=== PATIENT | male | born 1960 | race Caucasian/White ===

== ENCOUNTER 2017-11-29 12:33 | Inpatient (IN) | payer BC ==
[~2017-11-29] VITALS: Ht 165.1 cm; Wt 61.9 kg
[~2017-11-29 12:33] MED LIST: CIPRO 500MG TA500 MG PO; LISINOPRIL20 MG PO; NORCO 325 MG-51 TAB PO
[2017-11-29] MEDS ORDERED: LISINOPRIL40 MG PO (12:42)
[2017-11-29 13:04] LABS: EOS # 0.2 (0.04-0.40); EOS % 1.6 % (0.0-4.0); HEMATOCRIT 47.2 % (42.0-52.0); HEMOGLOBIN 16.1 g/dL (13.5-18.0); LYMPH# 2.5 (1.50-4.00); MEAN CELL VOLUME 96 fl (78-100); MEAN CORPUSCULAR HEMOGLOBIN 33 pg (27-31); MEAN CORPUSCULAR HGB CONC 34 g/dL (33-37); MEAN PLATELET VOLUME 10.1 fl (7.4-10.4); MONO # 1.6 (0.20-0.80); NEU # 9.1 (1.40-6.50); PLATELET COUNT 396 K/mm3 (130-400); RED BLOOD COUNT 4.93 M/mm3 (4.20-5.60); RED CELL DISTRIBUTION WIDTH 13.4 % (11.5-14.5); WHITE BLOOD COUNT 13.4 K/mm3 (4.8-10.8)
[2017-11-29 13:15] LABS: ALBUMIN 3.7 g/dL (3.5-5.0); BUN/CREATININE RATIO 11.2 (6.0-26.0); CALCIUM 9.1 mg/dL (8.4-10.2); TOTAL BILIRUBIN 0.7 mg/dL (0.2-1.3); TOTAL PROTEIN 6.9 g/dL (6.3-8.2)
[2017-11-29 13:40] LABS: URINE APPEARANCE CLEAR; URINE BILIRUBIN NEGATIVE (NEGATIVE); URINE BLOOD NEGATIVE (NEGATIVE); URINE COLOR YELLOW; URINE GLUCOSE NEGATIVE (NEGATIVE); URINE KETONE 2+ (NEGATIVE); URINE LEUKOCYTE ESTERASE NEGATIVE (NEGATIVE); URINE MUCUS PRESENT (NOT PRESENT); URINE NITRATE NEGATIVE (NEGATIVE); URINE PROTEIN(semi-quant) NEGATIVE (NEGATIVE); URINE UROBILINOGEN NORMAL (NORMAL)
--- NOTE | 2017-11-29 15:10 | NUR ---
ADMIT TO ROOM 206 FOR ACUTE PANCREATITIS. TRANSFER PER W/C FROM ED TO ROOM. PATIENT AMBULATORY WITH STEADY GAIT. INT INTACT TO LT FOREARM. ORIENT TO ROOM AND SAFETY PROTOCOL BY [employer]PER[employer]OR.
[2017-11-29 15:20] VITALS: BP 126/79
[2017-11-29 16:00] VITALS: BP 126/79
[2017-11-29 18:12] VITALS: BP 137/85
[2017-11-29 18:43] VITALS: BP 137/85
--- NOTE | 2017-11-29 19:03 | NUR ---
REPORT PROVIDED TO [facility].
--- NOTE | 2017-11-29 19:20 | NUR ---
Report received from Coretta BENITEZ. Patient resting in bed with eyes closed. No signs of pain or distress. Banana bag infusing at 125 ML/HR. Site patent. No signs of pain or distress.
--- NOTE | 2017-11-29 21:06 | NUR ---
Awake, calls for more analgesic. Pain 6/10 acrossed lower abdomen around to back. Constant pain. Fentanyl 50 MCG given SIVP. Up ad-aurora and voided 400 ML of clear yellow urine. Instructed to call if feels unsteady on feet. Scheduled ativan 0.5 mg taken PO. Ice chips provided. Assessment completed. Denies further wants or needs.
--- NOTE | 2017-11-29 22:33 | NUR ---
Rests on L side with eyes closed. No signs of distress. IV banana bag continues to infuse at 125 ML/HR.
[2017-11-29 23:00] VITALS: BP 133/80
--- NOTE | 2017-11-30 00:11 | NUR ---
Resting with eyes closed. No signs of pain or distress. [employer] woke patient up at 2300 for vitals. Discussed SCD order. Patient refused SCD's at that time. Patient is up and ambulatory ad-aurora. VSS. IV banana bag has 1 hour left then fluids will switch to NS.
--- NOTE | 2017-11-30 01:15 | NUR ---
Awake, up to BR ad-aurora. Voids 200 ML of yellow urine. New bag of IV fluids hung. NS at 125 ML/HR. Site patent. Pain level 5/10. Fentanyl 50 MCG given SIVP. Provided more ice chips. Denies further wants or needs. Call light in reach.
[2017-11-30 03:15] VITALS: BP 124/83
--- NOTE | 2017-11-30 03:54 | NUR ---
Resting with eyes closed. No signs of pain or distress.
--- NOTE | 2017-11-30 05:32 | NUR ---
Requests analgesic. Pain 4.5/10 to abdomen and back. States he is "much better" than when he came in. Fentanyl 50 MCG given SIVP. IVF NS continues to infuse at 125 ML/HR. Ice chips provided per request.
[2017-11-30 06:17] VITALS: BP 148/84
[2017-11-30 06:40] LABS: HEMATOCRIT 43.5 % (42.0-52.0); HEMOGLOBIN 14.6 g/dL (13.5-18.0); MEAN CELL VOLUME 98 fl (78-100); MEAN CORPUSCULAR HEMOGLOBIN 33 pg (27-31); MEAN CORPUSCULAR HGB CONC 34 g/dL (33-37); MEAN PLATELET VOLUME 10.3 fl (7.4-10.4); PLATELET COUNT 326 K/mm3 (130-400); RED BLOOD COUNT 4.46 M/mm3 (4.20-5.60); RED CELL DISTRIBUTION WIDTH 13.3 % (11.5-14.5); WHITE BLOOD COUNT 10.5 K/mm3 (4.8-10.8)
[2017-11-30 06:59] LABS: ALBUMIN 2.9 g/dL (3.5-5.0); BUN/CREATININE RATIO 7.4 (6.0-26.0); CALCIUM 8.1 mg/dL (8.4-10.2); LYMPHOCYTE 28 % (20-51); MONOCYTE 8 % (3-10); NEUTROPHILS 63 % (42-75); POTASSIUM 4.1 mmol/L (3.6-5.0); TOTAL BILIRUBIN 0.7 mg/dL (0.2-1.3); TOTAL PROTEIN 5.7 g/dL (6.3-8.2)
--- NOTE | 2017-11-30 07:08 | NUR ---
Report to Antionette BENITEZ.
--- NOTE | 2017-11-30 09:00 | NUR ---
Pt awakens upon this RN entering room. Reports pain continuous but is improved since admit. Denies need for pain Rx at this time. Fluids infusing to IV in LFA per order. Removed nicotine patch from R shoulder, placed new on L shoulder. Pt takes sip of water with PO med, then returns to NPO except ice chips.
[2017-11-30 11:21] VITALS: BP 118/84
--- NOTE | 2017-11-30 11:48 | NUR ---
Decreased infusion rate to 75ml/hr per order.
[2017-11-30 14:58] VITALS: BP 120/75
--- NOTE | 2017-11-30 17:37 | NUR ---
Pt has been resting off and on all afternoon. Did get up and shower without increase in pain. Rated pain 3/10 prior to falling asleep.
[2017-11-30 18:32] VITALS: BP 149/86
--- NOTE | 2017-11-30 19:00 | NUR ---
Bedside report received from Antionette Car RN. Pt resting in bed, awake, watching TV. A/o x 3. IV of NS infusing at 125mls/hr. Rates pain 4 out 10.
--- NOTE | 2017-11-30 19:15 | NUR ---
Given sandwich for evening snack. Pt ate 100%.
[2017-11-30 21:41] VITALS: BP 143/88
--- NOTE | 2017-11-30 21:42 | NUR ---
C/o's of upper quadrant pain. Rates pain 6 out 10. IV fentanyl 50mcq SIVP given. IV fluids of NS continues to infuse at 125mls/hr. Denies nausea. Took even ativan PO with sipp of water without difficulty. Pt call light with in reach of pt.
--- NOTE | 2017-11-30 22:13 | NUR ---
Continues to bed awake and a/o x 3 resting in bed. Call light with in reach of pt. States pain has improved. Rates pain 4 out 10. IV toradol 30mg given SIVP.
--- NOTE | 2017-11-30 23:30 | NUR ---
Q hourly checks done. Eyes closed with even respirations. IV fluids of NS infusing at 125mls/hr. SCD's on lower legs. Call light with in reach of pt.
--- NOTE | 2017-12-01 02:01 | NUR ---
0152 New bag of normal saline hung via pump. Infusing at 125mls/hr. Pt continues to rest in bed with eyes closed and even respirations. SCD's on. Call light with in reach of pt.
[2017-12-01 03:20] VITALS: BP 138/84
--- NOTE | 2017-12-01 04:00 | NUR ---
Q hourly checks done. Has been resting in bed with eyes closed and even respirations. IV fluids infusing at 125mls/hr. SCD's on right and left lower legs. Call light with in reach of pt.
--- NOTE | 2017-12-01 05:54 | NUR ---
Q hourly checks done. IV fluids of NS infusing at 125mls/hr. Currently awake and a/o x 3. C/o's of upper quadrant pain. Rates pain 4 out 10. Fentanyl 50mcg SIVP given.
--- NOTE | 2017-12-01 06:06 | NUR ---
Resting in bed awake and a/o x 3, watching TV. Pt had ambulated to the bathroom without assistances. States pain is improving. Still rates pain 4 out 10. States "pain is going down." Sa02 96-97% on room air. Pulse 81, respirations 20 and even. Lab into draw blood.
[2017-12-01 06:14] LABS: EOS # 0.4 (0.04-0.40); EOS % 3.5 % (0.0-4.0); HEMATOCRIT 46.7 % (42.0-52.0); HEMOGLOBIN 15.8 g/dL (13.5-18.0); LYMPH# 2.4 (1.50-4.00); MEAN CELL VOLUME 98 fl (78-100); MEAN CORPUSCULAR HEMOGLOBIN 33 pg (27-31); MEAN CORPUSCULAR HGB CONC 34 g/dL (33-37); MEAN PLATELET VOLUME 10.1 fl (7.4-10.4); MONO # 1.3 (0.20-0.80); PLATELET COUNT 343 K/mm3 (130-400); RED BLOOD COUNT 4.79 M/mm3 (4.20-5.60); RED CELL DISTRIBUTION WIDTH 13.3 % (11.5-14.5); WHITE BLOOD COUNT 11.1 K/mm3 (4.8-10.8)
[2017-12-01 06:27] VITALS: BP 122/66
[2017-12-01 06:27] LABS: ALBUMIN 3.2 g/dL (3.5-5.0); BUN/CREATININE RATIO 9.5 (6.0-26.0); CALCIUM 8.3 mg/dL (8.4-10.2); POTASSIUM 4.2 mmol/L (3.6-5.0); TOTAL BILIRUBIN 0.8 mg/dL (0.2-1.3); TOTAL PROTEIN 6.2 g/dL (6.3-8.2)
--- NOTE | 2017-12-01 07:00 | NUR ---
Bedside report given to Sydni Sanchez RN
--- NOTE | 2017-12-01 07:43 | NUR ---
Report received. Pt found resting in bed. Denies any needs at this time.
--- NOTE | 2017-12-01 08:30 | NUR ---
PT FOUND RESTING IN BED AFTER RETURNING FROM RADIOLOGY. RATES PAIN AT A 4/10 AT THIS TIME. TAKES SCHEDULED MEDS WITHOUT DIFFICULTY. NS INFUSING AT 125 ML/H, SITE FREE OF REDNESS OR SWELLING. CLEMENTINA RN REHAB IN TO VISIT WITH PT PRIOR TO CT. WILL ATTEMPT CLEAR LIQUID DIET FOR LUNCH. PT REMAINS ON ICE CHIPS. NO OTHER NEEDS NOTED AT THIS TIME. WILL CONTINUE TO MONITOR.
[2017-12-01 10:38] VITALS: BP 137/81
--- NOTE | 2017-12-01 14:05 | NUR ---
PT FOUND RESTING IN BED. SCHEDULED MED GIVEN. RATES PAIN AT 4.5-5/10 AT THIS TIME. STATED AFTER EATING THE CLEAR LIQUID DIET HE WAS DOING FINE UNTIL ABOUT NOW, AN HOUR AFTER EATING. STATES HIS PAIN IS UP A BIT BUT HE DOESN'T WANT ANYTHING FOR PAIN AT THIS TIME. WILL CONTINUE TO MONITOR.
[2017-12-01 14:56] VITALS: BP 159/84
--- NOTE | 2017-12-01 17:30 | NUR ---
PT REPORTS TOLERATING DINNER WELL. AFTER PRN SUPP PT IS ABLE TO HAVE SMALL BM AND STATES HE HAD OUT A LOT OF GAS. REPORTS PAIN IS STILL AT A 4/10 AT THIS TIME. WILL CONTINUE TO MONITOR.
[2017-12-01 18:20] VITALS: BP 132/80
--- NOTE | 2017-12-01 19:00 | NUR ---
Bedside report received from Sydni Sanchez RN. Pt resting in bed, awake and a/o x 3. Watching TV. Asked pt if he had any pain. Pt stated he has pain in upper abd more towards left upper quadrant. Rates pain 4 out 10. IV fluids of NS at 125mls/hr. Call light with in reach of pt.
--- NOTE | 2017-12-01 19:17 | NUR ---
Given fentanyl 50mcg SIVP. New bag of NS hung. To infuse via pump at 125mls/hr. Sa02 96% on room air, pulse 73 and respirations 18 and even.
--- NOTE | 2017-12-01 20:59 | NUR ---
2050 Continues to c/o of left upper quadrant pain. Rates pain 4 out 10. Toradol 30mg given SIVP. Sa02 97% on room air. Pulse 68, respirations 20 and even. IV of NS infusing at 125mls/hr. SCD's on. Pt watching TV. Offered pt evening snack of toast. Pt agreed and requested coffee. Call light with in reach of pt.
[2017-12-01 23:14] VITALS: BP 133/75
[2017-12-02 03:37] VITALS: BP 129/86
--- NOTE | 2017-12-02 03:41 | NUR ---
Q hourly checks done. Has been resting in bed, eyes closed and even respirations. Call light with in reach of pt. 0335 ambulated self to bathroom without difficulty. C/o of left upper quadrant pain. Rated pain 4 out 10. Given fentanyl 50mcg SIVP. Sa02 92% on room air. Pulse 64, respirations 18 and even. IV fluids of NS continue to infuse at 125mls/hr.
[2017-12-02 06:02] LABS: EOS # 0.3 (0.04-0.40); EOS % 4.1 % (0.0-4.0); HEMATOCRIT 40.1 % (42.0-52.0); HEMOGLOBIN 13.8 g/dL (13.5-18.0); LYMPH# 1.9 (1.50-4.00); MEAN CELL VOLUME 98 fl (78-100); MEAN CORPUSCULAR HEMOGLOBIN 34 pg (27-31); MEAN CORPUSCULAR HGB CONC 34 g/dL (33-37); MONO # 0.9 (0.20-0.80); NEU # 4.9 (1.40-6.50); PLATELET COUNT 319 K/mm3 (130-400); RED BLOOD COUNT 4.11 M/mm3 (4.20-5.60); RED CELL DISTRIBUTION WIDTH 12.8 % (11.5-14.5); WHITE BLOOD COUNT 8.1 K/mm3 (4.8-10.8)
[2017-12-02 06:20] LABS: ALBUMIN 2.7 g/dL (3.5-5.0); BUN/CREATININE RATIO 7.5 (6.0-26.0); CALCIUM 7.9 mg/dL (8.4-10.2); POTASSIUM 3.9 mmol/L (3.6-5.0); TOTAL BILIRUBIN 0.4 mg/dL (0.2-1.3); TOTAL PROTEIN 5.4 g/dL (6.3-8.2)
[2017-12-02 06:24] VITALS: BP 145/78
--- NOTE | 2017-12-02 07:27 | NUR ---
Bedside report given to Swathi García RN
--- NOTE | 2017-12-02 08:26 | NUR ---
Katey Copeland PA-C at bedside.
[2017-12-02] MEDS ORDERED: KETOROLAC10 MG PO (08:54)
--- NOTE | 2017-12-02 10:15 | NUR ---
Patient alert and oriented. Rates pain 3/10 to LUQ. Describes pain as "nagging." Denies need for pain medication at this time. Denies nausea. Denies dizziness or shortness of breath. Patient discharged to home. Discharge instructions and work note provided. Patient verbalizes understanding and denies questions or needs. Patient's father here to drive patient home. Ambulatory out of facility to [facility] without incident. Steady gait noted.
== END 2017-12-02 10:15 | disposition home or self-care (01) | DRG 440 ==
LOC: ED 12:33 → MED/SURG 15:10
PROVIDERS: Nurse Practitioner Primary Care; Physician Assistant; ADMIT Family Medicine
DX: K85.90 Acute pancreatitis without necrosis or infection, unspecified (principal); I10 Essential (primary) hypertension; F17.210 Nicotine dependence, cigarettes, uncomplicated; E86.9 Volume depletion, unspecified
CPT/HCPCS: C9113; J1885; J2765; J3010; J3411; J3490; J7030; Q9967

== ENCOUNTER → 2017-12-21 | Day surgery (SDC) | payer BC ==
[2017-12-02 06:24] VITALS: BP 145/78
[~2017-12-21] MED LIST changes: +GLYCOLAX17 GM/DOSE PO; +KETOROLAC10 MG PO; +LISINOPRIL40 MG PO; +PANTOPRAZOLE SO20 M1 PO
== END ==
LOC: MSO 08:38
DX: R10.13 Epigastric pain (principal); R63.4 Abnormal weight loss; F10.11 Alcohol abuse, in remission; Z87.19 Personal history of other diseases of the digestive system; F17.210 Nicotine dependence, cigarettes, uncomplicated
CPT/HCPCS: 00731; J2704; J7120

== ENCOUNTER 2017-12-22 21:01 | Inpatient (IN) | payer BC ==
[~2017-12-22] VITALS: Ht 165.1 cm; Wt 61.0 kg
[~2017-12-22 21:01] MED LIST changes: -GLYCOLAX17 GM/DOSE PO; -PANTOPRAZOLE SO20 M1 PO
[2017-12-22] MEDS ORDERED: GLYCOLAX17 GM/DOSE PO (21:23)
[2017-12-22] MEDS ORDERED: PANTOPRAZOLE SO20 M1 PO (21:23)
[2017-12-22 21:56] LABS: EOS # 0.6 (0.04-0.40); EOS % 4.5 % (0.0-4.0); HEMATOCRIT 41.8 % (42.0-52.0); HEMOGLOBIN 14.1 g/dL (13.5-18.0); LYMPH# 3.4 (1.50-4.00); MEAN CELL VOLUME 95 fl (78-100); MEAN CORPUSCULAR HEMOGLOBIN 32 pg (27-31); MEAN CORPUSCULAR HGB CONC 34 g/dL (33-37); MEAN PLATELET VOLUME 11.4 fl (7.4-10.4); MONO # 1.4 (0.20-0.80); NEU # 7.1 (1.40-6.50); PLATELET COUNT 377 K/mm3 (130-400); RED BLOOD COUNT 4.38 M/mm3 (4.20-5.60); RED CELL DISTRIBUTION WIDTH 12.7 % (11.5-14.5); WHITE BLOOD COUNT 12.6 K/mm3 (4.8-10.8)
[2017-12-22 22:11] LABS: ALBUMIN 3.5 g/dL (3.5-5.0); BUN/CREATININE RATIO 17.5 (6.0-26.0); CALCIUM 8.6 mg/dL (8.4-10.2); POTASSIUM 3.9 mmol/L (3.6-5.0); TOTAL BILIRUBIN 0.1 mg/dL (0.2-1.3); TOTAL PROTEIN 6.5 g/dL (6.3-8.2)
[2017-12-22 22:19] LABS: CKMB ISOENZYME 1.2 ng/mL (0.6-3.5)
[2017-12-22 22:23] LABS: TROPONIN-I < 0.03 ng/mL (0.00-0.06)
[2017-12-22 23:42] VITALS: BP 135/85
[2017-12-23] VITALS (7 sets, daily range): BP systolic 108–135; BP diastolic 55–85
[2017-12-23 08:25] LABS: EOS # 0.4 (0.04-0.40); EOS % 4.7 % (0.0-4.0); HEMATOCRIT 42.5 % (42.0-52.0); HEMOGLOBIN 14.2 g/dL (13.5-18.0); LYMPH# 2.3 (1.50-4.00); MEAN CELL VOLUME 96 fl (78-100); MEAN CORPUSCULAR HEMOGLOBIN 32 pg (27-31); MEAN CORPUSCULAR HGB CONC 33 g/dL (33-37); MEAN PLATELET VOLUME 10.7 fl (7.4-10.4); MONO # 0.9 (0.20-0.80); NEU # 4.9 (1.40-6.50); PLATELET COUNT 338 K/mm3 (130-400); RED BLOOD COUNT 4.43 M/mm3 (4.20-5.60); RED CELL DISTRIBUTION WIDTH 12.8 % (11.5-14.5); WHITE BLOOD COUNT 8.5 K/mm3 (4.8-10.8)
[2017-12-23 08:34] LABS: BUN/CREATININE RATIO 13.4 (6.0-26.0); CALCIUM 8.3 mg/dL (8.4-10.2); POTASSIUM 4.1 mmol/L (3.6-5.0); TOTAL BILIRUBIN 0.3 mg/dL (0.2-1.3); TOTAL PROTEIN 5.8 g/dL (6.3-8.2)
[2017-12-23 12:02] LABS: URINE APPEARANCE CLEAR; URINE BILIRUBIN NEGATIVE (NEGATIVE); URINE BLOOD TRACE (NEGATIVE); URINE COLOR LT YELLOW; URINE GLUCOSE NEGATIVE (NEGATIVE); URINE KETONE NEGATIVE (NEGATIVE); URINE LEUKOCYTE ESTERASE TRACE (NEGATIVE); URINE NITRATE NEGATIVE (NEGATIVE); URINE PROTEIN(semi-quant) NEGATIVE (NEGATIVE); URINE UROBILINOGEN NORMAL (NORMAL)
[2017-12-24 03:40] VITALS: BP 118/71
[2017-12-24 06:31] VITALS: BP 124/75
[2017-12-24 08:32] LABS: EOS # 0.3 (0.04-0.40); EOS % 3.5 % (0.0-4.0); HEMATOCRIT 42.8 % (42.0-52.0); HEMOGLOBIN 14.5 g/dL (13.5-18.0); LYMPH# 2.2 (1.50-4.00); MEAN CELL VOLUME 96 fl (78-100); MEAN CORPUSCULAR HEMOGLOBIN 33 pg (27-31); MEAN CORPUSCULAR HGB CONC 34 g/dL (33-37); MEAN PLATELET VOLUME 10.5 fl (7.4-10.4); MONO # 0.9 (0.20-0.80); NEU # 5.4 (1.40-6.50); PLATELET COUNT 324 K/mm3 (130-400); RED BLOOD COUNT 4.46 M/mm3 (4.20-5.60); RED CELL DISTRIBUTION WIDTH 12.5 % (11.5-14.5); WHITE BLOOD COUNT 8.9 K/mm3 (4.8-10.8)
[2017-12-24 08:37] LABS: ALBUMIN 3.2 g/dL (3.5-5.0); BUN/CREATININE RATIO 14.4 (6.0-26.0); CALCIUM 8.4 mg/dL (8.4-10.2); POTASSIUM 3.9 mmol/L (3.6-5.0); TOTAL BILIRUBIN 0.5 mg/dL (0.2-1.3)
[2017-12-24 11:01] VITALS: BP 114/74
[2017-12-24 15:23] VITALS: BP 123/76
[2017-12-24 18:20] VITALS: BP 125/77
[2017-12-24 23:14] VITALS: BP 132/74
[2017-12-25 03:21] VITALS: BP 126/72
[2017-12-25 06:02] VITALS: BP 130/77
[2017-12-25 11:08] VITALS: BP 155/86
[2017-12-25 15:16] VITALS: BP 126/77
[2017-12-25 18:48] VITALS: BP 124/80
[2017-12-25 22:57] VITALS: BP 139/85
[2017-12-26 02:20] VITALS: BP 113/69
[2017-12-26 06:13] VITALS: BP 119/69
[2017-12-26 11:01] VITALS: BP 150/85
[2017-12-26] MEDS ORDERED: ACETAMINOPHEN-H1 TA2 PO (13:12)
== END 2017-12-26 13:36 | disposition home or self-care (01) | DRG 440 ==
LOC: ED 21:01 → MED/SURG 22:52
PROVIDERS: Physician Assistant; ADMIT Nurse Practitioner Family
DX: K85.20 Alcohol induced acute pancreatitis without necrosis or infection (principal); K86.0 Alcohol-induced chronic pancreatitis; I10 Essential (primary) hypertension; I73.9 Peripheral vascular disease, unspecified; F17.210 Nicotine dependence, cigarettes, uncomplicated; F10.10 Alcohol abuse, uncomplicated
CPT/HCPCS: C9113; J2060; J2270; J2405; J7030; J7120; Q9967

== ENCOUNTER 2018-05-01 14:49 | Emergency (ER) | payer BC ==
[~2018-05-01] VITALS: Ht 165.1 cm; Wt 53.6 kg
[~2018-05-01 14:49] MED LIST changes: +ACETAMINOPHEN-H1 TA2 PO; +GLYCOLAX17 GM/DOSE PO; +PANTOPRAZOLE SO20 M1 PO
[2018-05-01] MEDS ORDERED: PRILOSEC 20MG20 MG PO (15:20)
[2018-05-01] MEDS ORDERED: CYMBALTA30 M1 PO (15:20)
[2018-05-01] MEDS ORDERED: ZOFRAN 8MG8 MG PO (15:21)
[2018-05-01] MEDS ORDERED: OXYCODONE HYDROC5 M1 PO (15:21)
[2018-05-01] MEDS ORDERED: OXYCONTIN40 M1 PO (15:21)
[2018-05-01] MEDS ORDERED: MIRALAX17 GM PO (15:23)
[2018-05-01] MEDS ORDERED: PANCREASE PO (15:23)
[2018-05-01] MEDS ORDERED: COMPAZINE10 M2 PO (15:24)
[2018-05-01] MEDS ORDERED: NEURONTIN300 M1 PO (15:25)
[2018-05-01] MEDS ORDERED: HALDOL 1MG T1 MG/TAB PO (15:26)
[2018-05-01] MEDS ORDERED: BACLOFEN5 MG PO (15:26)
[2018-05-01] MEDS ORDERED: PANCREAZE DR 11 EAC1 PO (15:28)
[2018-05-01 16:15] LABS: EOS # 0.2 (0.04-0.40); EOS % 3.4 % (0.0-4.0); HEMOGLOBIN 11.1 g/dL (13.5-18.0); LYMPH# 1.8 (1.50-4.00); MEAN CELL VOLUME 94 fl (78-100); MEAN CORPUSCULAR HEMOGLOBIN 31 pg (27-31); MEAN CORPUSCULAR HGB CONC 34 g/dL (33-37); MEAN PLATELET VOLUME 10.2 fl (7.4-10.4); MONO # 0.7 (0.20-0.80); NEU # 3.7 (1.40-6.50); PLATELET COUNT 197 K/mm3 (130-400); RED BLOOD COUNT 3.53 M/mm3 (4.20-5.60); RED CELL DISTRIBUTION WIDTH 13.7 % (11.5-14.5); WHITE BLOOD COUNT 6.5 K/mm3 (4.8-10.8)
[2018-05-01 16:29] LABS: ALBUMIN 3.5 g/dL (3.5-5.0); CALCIUM 8.9 mg/dL (8.4-10.2); POTASSIUM 3.8 mmol/L (3.6-5.0); TOTAL BILIRUBIN 0.4 mg/dL (0.2-1.3); TOTAL PROTEIN 6.3 g/dL (6.3-8.2)
[2018-05-01 17:25] VITALS: BP 136/78
[2018-05-01] MEDS ORDERED: GOOD NEIGHBOR200 M1 PO (17:29)
[2018-05-01 17:31] LABS: URINE COLOR YELLOW
[2018-05-01 17:32] LABS: URINE APPEARANCE CLEAR; URINE BILIRUBIN NEGATIVE (NEGATIVE); URINE BLOOD NEGATIVE (NEGATIVE); URINE GLUCOSE NEGATIVE (NEGATIVE); URINE KETONE NEGATIVE (NEGATIVE); URINE LEUKOCYTE ESTERASE NEGATIVE (NEGATIVE); URINE MUCUS PRESENT (NOT PRESENT); URINE NITRATE NEGATIVE (NEGATIVE); URINE PROTEIN(semi-quant) NEGATIVE (NEGATIVE); URINE UROBILINOGEN NORMAL (NORMAL); URINE WBC 0-1 /hpf (0-3)
[2018-05-01] MEDS ORDERED: ROXICODONE 55 MG/TAB PO (19:41)
== END 2018-05-01 20:05 | disposition left against medical advice (07) ==
LOC: ED 14:49 → MED/SURG 19:15 → ED 20:05
PROVIDERS: Family Medicine
DX: C25.9 Malignant neoplasm of pancreas, unspecified (principal); Z53.21 Procedure and treatment not carried out due to patient leaving prior to being seen by health care provider; Z79.891 Long term (current) use of opiate analgesic; Z79.899 Other long term (current) drug therapy; Z98.1 Arthrodesis status; F17.200 Nicotine dependence, unspecified, uncomplicated